=== PATIENT | male | born 1990 | race Caucasian/White ===

== ENCOUNTER 2021-09-02 10:33 | Emergency (ER) | payer OTHER ==
[~2021-09-02] VITALS: Ht 180.3 cm; Wt 117.9 kg
[2021-09-02 10:37] VITALS: BP 154/90
[2021-09-02] MEDS ORDERED: METH-1681 PO (11:23)
[2021-09-02] MEDS ORDERED: NAPR-54 PO (11:23)
[2021-09-02 11:33] VITALS: BP 154/90
--- NOTE | 2021-09-02 11:33 | NUR ---
Patient discharged with v/s stable. Written and verbal after care instructions given and explained. Patient alert, oriented and verbalized understanding of instructions. Ambulatory with steady gait. All questions addressed prior to discharge. ID band removed. Patient advised to follow up with PMD. Rx of ROBAXIN AND NAPROSYN given. Patient educated on indication of medication including possible reaction and side effects. Opportunity to ask questions provided and answered.
== END 2021-09-02 11:33 | disposition home or self-care (01) ==
LOC: MED 10:33
DX: S29.012A Strain of muscle and tendon of back wall of thorax, initial encounter (principal); Z79.899 Other long term (current) drug therapy; Z79.1 Long term (current) use of non-steroidal anti-inflammatories (NSAID); V49.9XXA Car occupant (driver) (passenger) injured in unspecified traffic accident, initial encounter; Y93.89 Activity, other specified; Y92.410 Unspecified street and highway as the place of occurrence of the external cause; Y99.8 Other external cause status
CPT/HCPCS: 99283